=== PATIENT | female | born 1970 | race Caucasian/White ===

== ENCOUNTER 2021-03-24 16:50 | Emergency (ER) | payer MEDICAID ==
[~2021-03-24] VITALS: Ht 167.6 cm; Wt 84.0 kg
[2021-03-24] MEDS ORDERED: KETOROLAC 60MG/2ML VIAL IM STA (17:33)
[2021-03-24] MEDS ORDERED: CYCLOBENZAPRINE 10MG TABLET PO ONE (17:45)
[2021-03-24] MEDS ORDERED: CYCL5TAB MT (18:25)
[2021-03-24] MEDS ORDERED: NAPR-681 MT (18:25)
[2021-03-24 18:37] VITALS: BP 162/87
== END 2021-03-24 18:38 | disposition home or self-care (01) ==
LOC: ER 16:50
DX: S39.012A Strain of muscle, fascia and tendon of lower back, initial encounter (principal); X58.XXXA Exposure to other specified factors, initial encounter; Y93.89 Activity, other specified; Y92.89 Other specified places as the place of occurrence of the external cause; Y99.8 Other external cause status
CPT/HCPCS: 72100; 81025; 96372; 99283; J1885